=== PATIENT | female | born 1950 | race Caucasian/White ===

== ENCOUNTER → 2017-03-10 | Outpatient (CLI) | payer MEDICARE, OTHER ==
--- NOTE | 2017-03-10 09:35 | KCIC ---
MR of the right shoulder Indication: Pain since June 2016. Technique: Standard multiplanar sequences are obtained. Findings: Mild motion degradation. Acromioclavicular joint: Mildly degenerative. Rotator cuff: Undersurface thinning at the supraspinatus tendon and infraspinatus tendon compatible with partial tearing. No measurable focal fluid gap or through and through rupture. No retraction. At the anterior supraspinatus tendon footprint, the remaining rotator cuff measures as thin as 1 mm. No significant subdeltoid bursal fluid. Mild rotator cuff muscle atrophy. Subscapularis tendinosis. Glenohumeral joint: Primary osteoarthritis with moderate to severe chondromalacia. No significant joint effusion. Labrum: Deformity of the superior labrum with some signal at its base. Deformity also extends to the posterior labrum. Findings are compatible with a degenerative tear. The anteroinferior labrum is poorly defined. Mild posterior subluxation of the humeral head. Biceps tendon: Intact Bones: No lesion or acute fracture. Soft tissue: No acute findings. Impression: 1. Primary glenohumeral joint osteoarthritis. 2. Diffuse labral degeneration, with tearing of at least the posterior and superior labrum. 3. Diffuse thinning and undersurface irregularity of the supraspinatus tendon and infraspinatus tendon compatible with partial undersurface tearing. No complete through and through rupture. Electronically signed by: Rahul Olsen MD (03/10/2017 9:31 AM) [id number]
== END | disposition home or self-care (01) ==
LOC: KCIC MRI 07:48
PROVIDERS: ATTEND Orthopaedic Surgery
DX: M19.011 Primary osteoarthritis, right shoulder (principal)
CPT/HCPCS: 73221

== ENCOUNTER → 2017-12-11 | Outpatient (CLI) | payer MEDICARE, OTHER | END | disposition home or self-care (01) | LOC: KCIC CT 10:25 | DX: M19.011 Primary osteoarthritis, right shoulder (principal) | CPT/HCPCS: 73200 ==